=== PATIENT | female | born 2005 | race Caucasian/White ===

== ENCOUNTER 2024-03-09 10:43 | Emergency (ER) | payer MEDICAID ==
[2024-03-09] MEDS: Ibuprofen 600 MG Tab PO ONE (11:41)
== END 2024-03-09 12:32 | disposition home or self-care (01) ==
LOC: MW.ED 10:43
DX: S39.012A Strain of muscle, fascia and tendon of lower back, initial encounter (principal); Z79.899 Other long term (current) drug therapy; X50.1XXA Overexertion from prolonged static or awkward postures, initial encounter
CPT/HCPCS: 99283; A9270

== ENCOUNTER 2024-11-21 14:37 | Emergency (ER) | payer MEDICAID ==
[2024-11-21] MEDS: Amoxicillin/Clavulanate K 875-125 MG Tab PO ONE (17:04)
== END 2024-11-21 17:08 | disposition home or self-care (01) ==
LOC: MW.ED 14:37
DX: J02.9 Acute pharyngitis, unspecified (principal); Z75.8 Other problems related to medical facilities and other health care
CPT/HCPCS: 99283; A9270; J1100; 99282